=== PATIENT | female | born 1950 | race Caucasian/White ===

== ENCOUNTER → 2017-06-14 | Outpatient (CLI) | payer MEDICARE, OTHER ==
--- NOTE | 2017-06-14 15:13 | FL ---
EXAMINATION TYPE: FL UGI air w esophagus DATE OF EXAM: 06/14/2017 CLINICAL HISTORY: Epigastric pain X 2-3 months. Hx of hiatal hernia repair 3 years ago. TECHNIQUE: A single contrast UGI study is performed. COMPARISON: None FINDINGS: Scoop Filler image of the abdomen shows no gross abnormality.The esophagus shows normal motility and emptyin g into the stomach. No evidence of hiatal hernia or stricture noted.The stomach shows normal distensibility, peristalsis, and mucosal folds. No evidence of any mass or ulcer disease. No significant gastroesophageal reflu x was seen during real time performance of this study.The duodenal bulb, sweep, and proximal small alton wel loops are unremarkable. IMPRESSION: No significant abnormality seen.
== END | disposition home or self-care (01) ==
LOC: RADFLMAIN 11:39
PROVIDERS: ATTEND Surgery
DX: R10.13 Epigastric pain (principal)
CPT/HCPCS: 74246

== ENCOUNTER → 2017-06-15 | Day surgery (SDC) | payer MEDICARE, OTHER ==
[2017-06-14 10:22] VITALS: BMI 22.1
[~2017-06-15] MED LIST: LACTATED RINGERS 1,000 ML IV ONE; LACTATED RINGERS 1,000 ML IV SCH; LIDOCAINE 1% 20 ML VIAL (10MG/ML) FOR IV START INTRADERMA ONE; LIDOCAINE 1% INJ 10MG/ML (20 ML MDV) ONE; PROPOFOL 10 MG/ML 20 ML VIAL IV ONE
[2017-06-15 08:59] VITALS: TEMP 97.8
--- NOTE | 2017-06-15 09:28 | P.GSHP ---
History of Present Illness H&P Date: 06/15/17 Chief Complaint: Epigastric pain This is a 67-year-old female who presents today for EGD. She's had complete epigastric pain. She is undergoing EGD for evaluation possible peptic ulcer disease. Past Medical History Past Medical History: Cancer, COPD, Hypertension Additional Past Medical History / Comment(s): epigastric pain for a few months, not affected by what she eats, hx. breast cancer 20 yrs. 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 Past Anesthesia/Blood Transfusion Reactions: No Reported Reaction Smoking Status: Current every day smoker - Past Family History Mother Sister(s) Family Medical History: Cancer Medications and Allergies Home Medications Medication Instructions Recorded Confirmed Type Albuterol Nebulized [Ventolin 2.5 mg INHALATION Q6H 06/14/17 06/15/17 History Nebulized] Aspirin 81 mg PO DAILY 06/14/17 06/14/17 History Budesonide [Pulmicort] 0.5 mg INHALATION BID 06/14/17 06/14/17 History Cholecalciferol [Vitamin D3] 1,000 unit PO DAILY 06/14/17 06/14/17 History Hydrochlorothiazide [Hydrodiuril] 25 mg PO DAILY 06/14/17 06/14/17 History Lisinopril [Zestril] 20 mg PO DAILY 06/14/17 06/14/17 History Meclizine [Antivert] 25 mg PO TID 06/14/17 06/14/17 History Allergies Allergy/AdvReac Type Severity Reaction Status Date / Time codeine Allergy Anaphylaxis Verified 06/14/17 10:17 Latex, Natural Rubber Allergy skin Verified 06/14/17 10:17 blisters Penicillins Allergy Anaphylaxis Verified 06/14/17 10:17 Surgical - Exam Vital Signs Temp Pulse Resp BP Pulse Ox 97.8 F 100 18 137/62 94 L 06/15/17 08:58 06/15/17 08:58 06/15/17 08:58 06/15/17 08:58 06/15/17 08:58 - General well developed, no distress - Eyes PERRL - ENT normal pinna - Neck no masses - Respiratory normal expansion - Cardiovascular Rhythm: regular - Abdomen Abdomen: soft, non tender Assessment and Plan Plan: Epigastric pain. We'll perform EGD.
--- NOTE | 2017-06-15 09:35 | P.OP ---
Date of Procedure: 06/15/17 Preoperative Diagnosis: Epigastric pain Postoperative Diagnosis: Antral gastritis Mild esophagitis Procedure(s) Performed: EGD Implants: Anesthesia: MAC Surgeon: Jarrod Velasco Pathology: other (Antrum, esophagus) Condition: stable Disposition: PACU Indications for Procedure: Operative Findings: Description of Procedure: The patient's placed on the endoscopy table in the lateral position. She received IV sedation. The gastroscope some placed oropharynx passed in the esophagus and stomach. Scope was then placed through the pylorus. The first and second portion of the duodenum appeared normal. Scope summer back and the antrum thisAppeared Mildly inflamed. A biopsies performed. Scope was then retroflexed the remainder some appeared normal. The patient a previous fundal plication wrap. This appeared normal. The GE junction was at 40 cm. This esophagus appeared mildly inflamed a biopsies performed. The proximal esophagus appeared normal. Scope was withdrawn for patient.
[2017-06-15 09:55] VITALS: RESP 16
[2017-06-15 10:15] VITALS: BP 109/56; PULSE 88
--- NOTE | 2017-06-15 13:54 | NM ---
EXAMINATION TYPE: NM hepatobiliary w EF DATE OF EXAM: 06/15/2017 COMPARISON: NONE HISTORY: 67 year-old female epigastric abdominal pain, chronic cholecystitis TECHNIQUE: After the intravenous administration of 5.5 mCi Tc 99m Mebrofenin hepatobiliary scintigrap hy is performed. Immediate images post injection. FINDINGS: There is satisfactory initial accumulation of tracer by the liver. The gallbladder is visualized wit hin 6 minutes. The small bowel activity is noted within 20 minutes. At one hour 8 ounces of oral en sure plus is given to mimic CCK and gallbladder ejection fraction is calculated at 59 %, in the [place] l range. Therefore there is no scintigraphic evidence of cystic or common bile duct obstruction to s uggest acute cholecystitis or gallbladder dyskinesia. IMPRESSION: No scintigraphic evidence for acute/chronic cholecystitis or biliary dyskinesia. Gallbladder EF of 59 %.
== END ==
LOC: ORWHC2ENDO 08:41
PROVIDERS: ATTEND Surgery
DX: K29.50 Unspecified chronic gastritis without bleeding (principal); K20.9 Esophagitis, unspecified; J44.9 Chronic obstructive pulmonary disease, unspecified; I10 Essential (primary) hypertension; I67.1 Cerebral aneurysm, nonruptured; F17.200 Nicotine dependence, unspecified, uncomplicated; Z98.51 Tubal ligation status; Z85.3 Personal history of malignant neoplasm of breast; Z79.82 Long term (current) use of aspirin; Z79.51 Long term (current) use of inhaled steroids; Z79.899 Other long term (current) drug therapy; Z88.5 Allergy status to narcotic agent; Z88.0 Allergy status to penicillin; Z91.040 Latex allergy status
CPT/HCPCS: 88305; 88342; 78226; 43239; A9537; J2001; J2704

== ENCOUNTER → 2017-06-15 | Day surgery (SDC) | payer MEDICARE, OTHER | LOC: ORWHC2ENDO 08:41 | PROVIDERS: ATTEND Surgery | DX: R10.13 Epigastric pain (principal) ==

== ENCOUNTER → 2019-06-06 | Outpatient (CLI) | payer MEDICARE, OTHER ==
--- NOTE | 2019-06-06 09:05 | CT ---
EXAMINATION TYPE: CT chest w con DATE OF EXAM: 06/06/2019 COMPARISON: 05/21/2015 HISTORY: Lung mass, COPD CT DLP: 170 mGycm Automated exposure control for dose reduction was used. CONTRAST: CT scan of the chest is performed with IV Contrast, patient injected with 100 mL of Isovue 300. FINDINGS: LUNGS: There is a large right hilar mass with spiculation measuring 3.4 x 2.4 cm extending to the rig ht hilum. A large bulla is seen with a more peripheral spiculated nodule also noted measuring 1.5 x 1 cm also suspicious for malignancy. Subpleural nodularity in the superior segment right lower lobe li olivia is inflammatory. There is a 1 mm subpleural nodule posterior superior segment left upper lobe. There is an additional pulmonary nodule measuring 1 cm anterior segment right upper lobe axial image 34 Interlobular septal thickening noted in findings of interstitial chronic lung disease. Emphysematous changes are seen. No pleural effusion. No pneumothorax. MEDIASTINUM: Within the right hilum the soft tissue mass extends to the right hilum and narrows the r ight mainstem bronchus. There is pathologic adenopathy measuring short axis of 2 cm. Additionally the re is subcarinal adenopathy measuring 1.8 cm in short axis. Previous surgery or biopsy involving the left breast with dystrophic calcifications noted. Atheroscle rotic change aorta noted. Heart is prominent in size. OTHER: There is a hiatal hernia. Previous left-sided breast biopsy suggested with dystrophic calcifi cation. Atherosclerotic change of the aorta and its branch vessels. Suggestion of a significant steno sis involving the SMA near its origin. Hypertrophic and degenerative changes spine. Endplate compress ion deformities in the thoracic spine appear to be chronic. There is be atherosclerotic change of the origins of the great vessels with particular attention to the origin of the left common carotid gerri ry. IMPRESSION: 1. There are multiple right-sided lung masses the largest measuring 3.4 cm with spiculation. There is mediastinal and hilar adenopathy suspicious for malignancy. 2. COPD and findings suggestive of interstitial chronic lung disease. 3. Significant stenosis at the origin of the left common carotid artery suspected.
== END ==
LOC: RADCTMAIN 07:26
PROVIDERS: ATTEND Family Medicine
DX: R91.8 Other nonspecific abnormal finding of lung field (principal); R59.0 Localized enlarged lymph nodes; J44.9 Chronic obstructive pulmonary disease, unspecified; Z88.0 Allergy status to penicillin; Z88.5 Allergy status to narcotic agent; Z91.040 Latex allergy status
CPT/HCPCS: 82565; 84520; 71260; 36415; Q9967

== ENCOUNTER → 2019-07-06 | Outpatient (CLI) | payer MEDICARE, OTHER ==
--- NOTE | 2019-07-09 07:34 | PE ---
EXAMINATION TYPE: PET CT fusion skull to thigh DATE OF EXAM: 07/06/2019 COMPARISON: Chest CT June 06, 2019. CT chest and abdomen May 21, 2015. HISTORY: History of breast cancer with abnormal CT, solitary pulmonary nodule TECHNIQUE: Following the intravenous administration of 11.64 mCi of F-18 FDG, whole body images are performed from the skull base to the midthigh. Images are reviewed on the computer in the coronal, a xial, and sagittal planes. Reconstructed rotating images are created on independent workstation and reviewed on the computer. A noncontrast CT is performed in conjunction with the PET scan. SCAN: Initial Scan FINDINGS: SKULL BASE AND NECK: There is no suspicious hypermetabolic uptake. CHEST, MEDIASTINUM, AND HILAR REGION: Redemonstration of background advanced underlying emphysematous change. Redemonstration of peripheral right upper to midlung 1.7 x 1.7 cm nodule with abnormal hyper metabolic uptake, max SUV is 5.7 on axial image 89. Just inferior medial to this right suprahilar lev el there is hypermetabolic spiculated mass or adenopathy measuring 3.3 x 2.3 cm axial image 93 with m ax SUV of 7.33. There is abnormal hypermetabolic paracarinal lymph node measuring 2.1 x 1.7 cm axial Image 94, max SUV of 7.95. There is abnormal hypermetabolic subcarinal lymph node measuring 4.6 x 1.8 cm axial image 101, max SUV of 9.19. No suspicious hypermetabolic nodules in the left lung. ABDOMEN AND PELVIS: No suspicious hypermetabolic uptake. Thickening to both adrenal glands without h ypermetabolic uptake consistent with benign lipid rich hyperplasia. OSSEOUS STRUCTURES: No suspicious hypermetabolic uptake. OTHER CT: Fairly severe calcified plaque bilateral carotid bulb level. Fairly severe calcified plaque in the abdominal aorta. Coronary artery calcification is present which is noted marked underlying coronary artery disease. En larged pulmonary arteries, CT findings consistent with underlying pulmonary artery hypertension. Surg ical changes to the left breast noted. Surgical changes below diaphragm presumed from the central fundoplication surgery with recurrent smal l hiatal hernia. Normal-appearing appendix. Dextroconvex scoliosis centered in the upper and mid lumbar spine. IMPRESSION: Advanced emphysematous change with confirmation of abnormal hypermetabolic uptake strongl y suspicious for malignancy. CT-guided biopsy of peripheral lesion or bronchoscopy for right hilar sa mpling can be considered for tissue confirmation. TNM STAGING T1b,N2,M0 AJCC STAGING IIIA
== END | disposition home or self-care (01) ==
LOC: RADPETMAIN 12:01
PROVIDERS: ATTEND Internal Medicine Critical Care Medicine
DX: J43.9 Emphysema, unspecified (principal); R91.1 Solitary pulmonary nodule
CPT/HCPCS: 78815; A9552

== ENCOUNTER → 2019-07-11 | Outpatient (CLI) | payer MEDICARE, OTHER | LOC: CPPFTMAIN 08:08 | PROVIDERS: ATTEND Internal Medicine Critical Care Medicine | DX: J45.909 Unspecified asthma, uncomplicated (principal) | CPT/HCPCS: 94060; 94726; 94729 ==

== ENCOUNTER 2019-08-09 10:34 | Day surgery (SDC) | payer MEDICARE, OTHER ==
[2019-08-07 11:10] VITALS: BMI 22.6
[~2019-08-09 10:34] MED LIST changes: +ALBUTEROL NEB (CONC) 2.5 MG/0.5 ML INHALATION ONE; +ATROPINE SULFATE 0.4 MG/ML 1 ML VIAL IM ONE; -LACTATED RINGERS 1,000 ML IV ONE; -LIDOCAINE 1% 20 ML VIAL (10MG/ML) FOR IV START INTRADERMA ONE; +LIDOCAINE 1% 20 ML VIAL (10MG/ML) FOR IV START INTRADERMA PRN; -LIDOCAINE 1% INJ 10MG/ML (20 ML MDV) ONE; +LIDOCAINE 2% (PF) 20 MG/ML 5 ML VIAL INHALATION ONE; +LIDOCAINE VISCOUS 300 MG/15 ML CUP MUCOUS MEM ONE; -PROPOFOL 10 MG/ML 20 ML VIAL IV ONE; +SODIUM CHLORIDE 0.9% 1,000 ML IV SCH
[2019-08-09] MEDS ORDERED: DEXAMETHASONE SOD PHOSPHATE 10 MG/ML 1 ML VIAL IV ONE (11:57)
[2019-08-09] MEDS ORDERED: ONDANSETRON 4 MG/2 ML VIAL IVP ONE (11:57)
--- NOTE | 2019-08-09 12:17 | CT ---
EXAMINATION TYPE: CT Chest blade Wu Protocol DATE OF EXAM: 08/09/2019 COMPARISON: PET/CT July 06, 2019. HISTORY: Pre bronchial navigation CT DLP: 624 mGycm Automated exposure control for dose reduction was used. FINDINGS: Examination is for peribronchial planning and not for diagnostic purposes. There is redemonstration of emphysematous change with right hilar scar like neoplasm in the more buzz pheral right midlung spiculated lesion. Exam correlates with hypermetabolic lesions on PET/CT. Excisi onal changes inferiorly left breast are redemonstrated. Moderate to severe calcified plaque of the ab dominal aorta. IMPRESSION: As above.
[2019-08-09] MEDS ORDERED: PHENYLEPHRINE-0.9% NACL SYG 1 MG/10 ML SYRINGE ONE (12:31)
[2019-08-09] MEDS ORDERED: fentaNYL (PF) 50 MCG/ML 2 ML AMP ONE (12:31)
[2019-08-09] MEDS ORDERED: ePHEDrine SULFATE/0.9% NACL/PF 50 MG/5 ML SYRINGE IV ONE (12:31)
[2019-08-09] MEDS ORDERED: MIDAZOLAM 2 MG/2 ML VIAL ONE (12:31)
[2019-08-09] MEDS ORDERED: KETAMINE 10 MG/ML 20 ML VIAL ONE (12:31)
[2019-08-09] MEDS ORDERED: SUCCINYLCHOLINE CHLORIDE 100 MG/5 ML SYR IV ONE (12:31)
[2019-08-09] MEDS ORDERED: PROPOFOL 10 MG/ML 20 ML VIAL IV ONE (12:31)
[2019-08-09 13:37] VITALS: TEMP 97
--- NOTE | 2019-08-09 14:01 | XR ---
EXAMINATION TYPE: XR chest 1V portable DATE OF EXAM: 08/09/2019 COMPARISON: CT chest same day HISTORY: Status post navigational bronchoscopy TECHNIQUE: frontal view of the chest is obtained on 2 images. FINDINGS: Right hilar mass with peripheral extension in the right midlung is again noted. There is n o evident pneumothorax. Heart is small. Patient is rotated. Increased lung volume compatible with und erlying COPD. IMPRESSION: No evident complication status post lung biopsy.
[2019-08-09 14:30] VITALS: RESP 20
--- NOTE | 2019-08-09 14:30 | PCN ---
PROCEDURE NOTE PROCEDURE: Navigational bronchoscopy. PREOPERATIVE DIAGNOSIS: Right upper lobe mass, rule out bronchogenic carcinoma. POSTOPERATIVE DIAGNOSIS: Right upper lobe mass, rule out bronchogenic carcinoma. Dr. Carrillo and the C[employer] MACHINE OPERATOR provided general anesthesia. The patient was done in operating room #1. There was informed consent and universal timeout. OPERATORS: Dr. Toney and Alisa. After the patient was adequately sedated and under the effects of general anesthesia, the bronchoscope was inserted through the bronchoscope adapter connected to the endotracheal tube. We use the navigational device to locate the lesion in the right upper lobe. Multiple samples were taken. There were transbronchial needle aspirations, transbronchial biopsies washes and brushes in the right upper lobe. There was some minimal bleeding. The patient tolerated procedure well. This was the area that we really saw disease in. We did do evaluation of the left upper lobe and its 2 segments the lingula and its 2 segments, the left lower lobe and its 4 segments, the right middle lobe and its 2 segments in the right lower lobe and its 5 segments. The rest of the airways appeared to be relatively normal. Again, the patient tolerated the procedure well. Finally, we did have Dr. Pfeiffer in the room with us. He looked at the initial core biopsies done by needle aspirations. He thought that we differently had a diagnosis of non-small cell lung cancer, probably adenocarcinoma. Anyway, the official specimens will be evaluated further in the laboratory. The patient tolerated the procedure well and will be recovered. I will talk to the family on the way out. MMODL / IJN: [id number] /
[2019-08-09 14:46] VITALS: BP 121/70; PULSE 109
[2019-08-09 20:36] LABS: Appearance,BF Bloody; Color,BF Red; Nucleated Cells, Body Fluid 67 /uL; RBC, Body Fluid 34900 /uL
[2019-08-09 20:44] LABS: Mononuclear WBC,Body Fluid 75 %; Polynuclear WBC,Body Fluid 25 %; Total Cells Counted,Body Fluid 100
== END 2019-08-09 14:56 | disposition home or self-care (01) ==
LOC: ORWHC2ENDO 10:34
PROVIDERS: ATTEND Internal Medicine Critical Care Medicine
DX: C34.11 Malignant neoplasm of upper lobe, right bronchus or lung (principal); J44.9 Chronic obstructive pulmonary disease, unspecified; I10 Essential (primary) hypertension; I72.9 Aneurysm of unspecified site; Z82.5 Family history of asthma and other chronic lower respiratory diseases; Z97.2 Presence of dental prosthetic device (complete) (partial); Z82.49 Family history of ischemic heart disease and other diseases of the circulatory system; Z85.3 Personal history of malignant neoplasm of breast; Z79.82 Long term (current) use of aspirin; Z98.51 Tubal ligation status; Z79.51 Long term (current) use of inhaled steroids; Z79.899 Other long term (current) drug therapy; Z87.891 Personal history of nicotine dependence; Z88.5 Allergy status to narcotic agent; Z88.0 Allergy status to penicillin; Z91.040 Latex allergy status
CPT/HCPCS: 88104; 88108; 88305; 88173; 89050; 88342; 88341; 71045; 71250; 31628; 31623; 31627; J2250; J1100; J2405; J3010; J2370; J0330; J2704; 31624; 31629

== ENCOUNTER → 2019-08-24 | Outpatient (CLI) | payer MEDICARE, OTHER ==
--- NOTE | 2019-08-24 15:43 | MR ---
EXAMINATION TYPE: MR brain wo/w con DATE OF EXAM: 08/24/2019 COMPARISON: None HISTORY: Lung ca, pt states she has no symptoms TECHNIQUE: Multiplanar, multisequence images of the brain and brainstem is performed without and with IV contras t, utilizing 6 mL intravenous Gadavist . FINDINGS: There is some cerebral cortical atrophy. There is no mass effect nor midline shift. There is no sign of intracranial hemorrhage. Corpus callosum is intact. There is no evidence of cortical infarct. On t he T2 and FLAIR images there are scattered small foci of increased signal in the ojeda-white matter ju nction of both cerebral hemispheres. These measure up to 5 mm and total number is approximately 10. T he brainstem is intact. Sella turcica appears normal. There is normal contrast opacification of the venous sinuses. There is no pathologic enhancement. IMPRESSION: Mild atrophy. Minimal white matter signal changes consistent with some chronic small vess el ischemia. No evidence of metastatic disease.
== END | disposition home or self-care (01) ==
LOC: RADMRIMAIN 10:46
PROVIDERS: ATTEND Internal Medicine Hematology & Oncology
DX: G31.9 Degenerative disease of nervous system, unspecified (principal); I67.82 Cerebral ischemia; R90.89 Other abnormal findings on diagnostic imaging of central nervous system; C34.11 Malignant neoplasm of upper lobe, right bronchus or lung
CPT/HCPCS: 70553; A9585

== ENCOUNTER → 2019-09-04 | Outpatient (CLI) | payer MEDICARE, OTHER | END | disposition home or self-care (01) | LOC: RADCTMAIN 15:31 | PROVIDERS: ATTEND Internal Medicine Hematology & Oncology | DX: Z53.9 Procedure and treatment not carried out, unspecified reason (principal) ==